=== PATIENT | male | born 1935 | race Caucasian/White ===

== ENCOUNTER 2018-08-02 11:10 | Observation (INO) | payer MEDICARE ==
[~2018-08-02] VITALS: Ht 162.6 cm; Wt 71.7 kg
[2018-08-02] MEDS ORDERED: ASPIRIN 81 MG CHEW TAB PO STA (11:41)
[2018-08-02] MEDS ORDERED: PANTOPRAZOLE 40 MG 10ML VIAL IV STA (11:41)
[2018-08-02] MEDS ORDERED: SODIUM CHLORIDE 0.9% 500ML 500 ML IV ONE (11:45)
[2018-08-02] MEDS ORDERED: METOPROLOL TARTRATE 25 MG TAB PO SCH ×4 (11:45→22:00)
[2018-08-02 11:50] LABS: BASOPHILS # (AUTO) 0.1 (0.0-0.1); BASOPHILS % 0.5 % (0.0-1.0); EOSINOPHILS # (AUTO) 0.3 (0.0-0.4); EOSINOPHILS % 2.7 % (0.0-6.0); HEMATOCRIT 41.3 % (38.2-49.6); HEMOGLOBIN 14.3 g/dL (14.0-18.0); LYMPHOCYTES # (AUTO) 2.8 (1.0-3.2); LYMPHOCYTES % 28.5 % (18.0-39.1); MEAN CORPUSCULAR HEMOGLOBIN 31.9 pg (28-32); MEAN CORPUSCULAR HGB CONC 34.6 g/dL (31-35); MEAN CORPUSCULAR VOLUME 92.2 fL (81-99); MONOCYTES # (AUTO) 0.8 (0.2-0.8); MONOCYTES % 8.2 % (4.4-11.3); NEUTROPHILS # (AUTO) 5.9 (2.1-6.9); NEUTROPHILS % 59.5 % (38.7-80.0); PLATELET COUNT 199 x10e3/uL (140-360); RED BLOOD COUNT 4.48 x10e6/uL (4.3-5.7); RED CELL DISTRIBUTION WIDTH 12.6 % (11.7-14.4)
[2018-08-02 11:57] LABS: INR 0.99; PARTIAL THROMBOPLASTIN TIME 31.5 seconds (23.8-35.5)
[2018-08-02 12:04] LABS: ALANINE AMINOTRANSFERASE 29 IU/L (0-55); ALBUMIN 4.1 g/dL (3.5-5.0); ALBUMIN/GLOBULIN RATIO 1.4 (0.8-2.0); ALKALINE PHOSPHATASE 57 IU/L (40-150); ANION GAP 12.4 mmol/L (8-16); BLOOD UREA NITROGEN 18 mg/dL (7-26); BUN/CREATININE RATIO 18 (6-25); CALCIUM 9.6 mg/dL (8.4-10.2); CARBON DIOXIDE 26 mmol/L (22-29); CHLORIDE 103 mmol/L (98-107); CREATINE KINASE 67 IU/L (30-200); CREATININE, SERUM 0.99 mg/dL (0.72-1.25); EST GLOMERULAR FILTRATION RATE > 60 ML/MIN (60-); GLUCOSE 140 mg/dL (74-118); MAGNESIUM 2.3 MG/DL (1.3-2.1); POTASSIUM 4.4 mmol/L (3.5-5.1); SODIUM 137 mmol/L (136-145)
[2018-08-02 12:24] LABS: THYROID STIMULATING HORMONE 0.941 uIU/mL (0.350-4.940)
[2018-08-02 13:43] LABS: CLARITY,URINE CLEAR (CLEAR); COLOR,URINE YELLOW (YELLOW)
[2018-08-02 13:44] LABS: BILIRUBIN,URINE NEGATIVE (NEGATIVE); KETONES,URINE NEGATIVE (NEGATIVE); LEUKOCYTE ESTERASE ,URINE NEGATIVE (NEGATIVE); NITRITE,URINE NEGATIVE (NEGATIVE); PROTEIN,URINE DIPSTICK NEGATIVE (NEGATIVE); URINE UROBILINOGEN 0.2 mg/dL (0.2 - 1)
[2018-08-02] MEDS ORDERED: MORPHINE SULFATE 2 MG/ML SYR IV PRN (14:15)
[2018-08-02] MEDS ORDERED: ONDANSETRON HCL INJ 2 MG/ML VIAL IV PRN (14:15)
[2018-08-02] MEDS ORDERED: ENOXAPARIN SODIUM INJ 100 MG/ML SYR SC SCH (14:15)
[2018-08-02] MEDS ORDERED: METOPROLOL TARTRATE INJ 1 MG/ML VIAL IV PRN (15:45)
[2018-08-02] MEDS ORDERED: TEMAZEPAM 15 MG CAP PO PRN (15:45)
--- NOTE | 2018-08-02 16:11 | Diagnostic Imaging Report ---
PROCEDURE: CHEST SINGLE (PORTABLE) COMPARISON: None. INDICATIONS: AFIB FINDINGS: LUNGS: No consolidations or edema. PLEURA: No effusions or pneumothorax. HEART & MEDIASTINUM: The heart is within normal size-limits. There is calcification within the aorta. Focal eventration of the right hemidiaphragm. BONES & SOFT TISSUES: No acute findings. CONCLUSION: No acute thoracic abnormality. Ross Galdamez D.O. Dictated by: Ross Galdamez D.O. on 08/02/2018 at 16:20 Electronically approved by: Ross Galdamez D.O. on 08/02/2018 at 16:20
--- NOTE | 2018-08-02 20:16 | Consultation ---
DATE OF CONSULTATION: August 02, 2018 REASON FOR CONSULTATION: Atrial fibrillation. HISTORY: This is an 83-year-old gentleman who is very healthy. He is known with longstanding history of hypertension and hypercholesterolemia. He is very physically active. In fact, he spent all of his day moving and doing other things. He went today for his checkup at [facility], and he was in atrial fibrillation with rapid ventricular response, and sent to this institution. Cardiac consultation is obtained. I visited the patient who denied having any angina or congestive heart failure like symptoms. He said probably he feels some palpitations, but no real fast heart rate. There is no angina, no orthopnea, no paroxysmal nocturnal dyspnea. No syncope or presyncope. REVIEW OF SYSTEMS: CARDIAC: As per above. PULMONARY: No cough. No hemoptysis. GI: No hematemesis. No melena. : No hematuria. No dysuria. NEUROMUSCULAR: No aches. No pain. GENERAL: No fever and no chills. HEMATOLOGICAL: No easy bruising or bleeding. PAST MEDICAL HISTORY: 1. Hypertension. 2. Hyperlipidemia. 3. Cataract surgery. 4. Glaucoma. HOME MEDICATIONS: Lisinopril 20 mg a day. Amlodipine 10 mg a day. Zocor 40 mg a day and eye drops. ALLERGIES: NONE. SOCIAL HISTORY: He is . He is a salesman. He is a nonsmoker and not an alcohol drinker. FAMILY HISTORY: Father of depression at age 81 and failure to thrive. Mother of myocardial infarction at age 69. She was diabetic. Six brothers. He lost a brother to an accident and another brother had pacemaker. No sisters. Three sons. He lost a son to an accident and another son who had hypertensive CVA at young age. One healthy daughter. PHYSICAL EXAMINATION VITALS: Height of 5 feet, 4 inches, weight of 158 pounds. Blood pressure 130/90. Heart rate of 110 per minute. Irregular, irregular rate of atrial fibrillation. Respiratory rate of 18. HEENT: Pupils are equal and reactive. NECK: No elevation of jugular venous pulsation. CHEST: Clear to auscultation and percussion. HEART: PMI in the 5th left intercostal space. Normal 1st and 2nd heart sounds. ABDOMEN: Soft with good bowel sounds. No organomegaly. No abdominal bruits. EXTREMITIES: No cyanosis. No clubbing. No edema. NEUROLOGIC: Awake, alert and oriented. No motor or sensory deficits. LABORATORY DATA: Sodium of 137. Potassium of 4.4. BUN of 18 and creatinine at 0.99. Glucose of 141. White blood cell count of 9.95. Hemoglobin 14.3, hematocrit 41%. Platelet count of 199,000. IMPRESSION AND PLAN: 1. Atrial fibrillation, questionable duration with fast ventricular response. 2. Hypertension. 3. Hyperlipidemia. Cardiac-maldonado we had a lengthy discussion and explained the goal statement, rate control and voodoo of rhythm and prevention of CVA. His CHADS score is 2. Recommendation is anticoagulation. We discussed warfarin and new anticoagulation agent and he wants Eliquis. A friend of his is using that and he is very happy with it. Would put him on that. Will put him on beta raisa. Will continue his lisinopril. Will check the echocardiogram, which was done by Dr. Parrish to assess good ejection fraction and valvular structure. Serial cardiac enzymes are ordered. Will follow that. We had a lengthy discussion explaining atrial fibrillation, etc., etc. Job#: [id number]
[2018-08-02] MEDS ORDERED: SIMVASTATIN 40 MG TAB PO SCH (21:00)
[2018-08-03 05:31] LABS: CHOL/HDL RATIO 4.3 (3.9-4.7); CREATINE KINASE 55 IU/L (30-200)
[2018-08-03] MEDS ORDERED: LISINOPRIL 20 MG TAB PO SCH (09:00)
[2018-08-03] MEDS ORDERED: METOPROLOL TARTRATE 25 MG TAB PO SCH (09:00)
[2018-08-03] MEDS ORDERED: FAMOTIDINE 20 MG/2 ML VIAL IV SCH (09:00)
[2018-08-03] MEDS ORDERED: APIXABAN 5 MG TABLET PO SCH (09:00)
[2018-08-03 10:45] VITALS: BP 137/85
--- NOTE | 2018-08-03 18:35 | Discharge Summary ---
PRIMARY CARE DOCTOR: Dr. Helen Dalal with [facility]. FINAL DIAGNOSIS: New-onset paroxysmal atrial fibrillation with rapid ventricular response. SECONDARY DIAGNOSES 1. Hypertension. 2. Dyslipidemia. PROCEDURES/STUDIES PERFORMED: None. CONSULTANTS: Dr. Weaver, cardiology. HISTORY: Per [facility] HOSPITAL COURSE: The patient was admitted. He was rate controlled with metoprolol. Subsequently, the patient converted back to sinus. The patient was evaluated by cardiology, who recommended Eliquis after a long discussion with the patient. I told the patient to stop his Norvasc, and instead he will take metoprolol. The patient was also given a prescription for Eliquis. The patient was seen and examined today. He will follow up with his PCP in 1 week. CONDITION ON DISCHARGE: Stable. DISCHARGE MEDICATIONS: Please see medication reconciliation form. JESUS ALBERTO DAVIS M.D. Job#: [id number] [place] cc:HELEN DALAL MD
--- OUTSIDE RECORDS SUMMARY | 2018-08-09 13:20 | XMS REPORT ---
Author Author [facility] Address Unknown Phone Unavailable Care Team Providers Care Coding Support Specialist Name Role Phone Rush DAVIS Unavailable Unavailable Problems This patient has no known problems. Allergies, Adverse Reactions, Alerts This patient has no known allergies or adverse reactions. Medications This patient has no known medications. Results Test Description Test Time Test Comments Text Results Atomic Results Result Comments CHEST SINGLE (PORTABLE) 2018-08-02 16:20:00 [place] [id number] Patient Name: KYLE GALVEZ MR #: [id number] : 1935 Age/Sex: 83/M Req #: [id number] [facility] Physician: JESUS ALBERTO DAVIS MD Ordered by: BRANDON ALMAZAN MD Report #: [id number] Location: [facility] Room/Bed: [place] [address] Procedure: [id number] DX/CHEST SINGLE (PORTABLE) Exam Date: 08/02/18 Exam Time: 1207 REPORT STATUS: Signed PROCEDURE: CHEST SINGLE (PORTABLE) COMPARISON: None. INDICATIONS: AFIB FINDINGS: LUNGS: No consolidations or edema. PLEURA: No effusions or pneumothorax. HEART MEDIASTINUM: The heart is within normal size-limits. There is calcification within the aorta. Focal eventration of the right hemidiaphragm. BONES SOFT TISSUES: No acute findings. CONCLUSION: No acute thoracic abnormality. Tim Galdamez D.O. Dictated by: Tim Galdamez D.O. on 08/02/2018 at 16:20 Electronically approved by: Tim Galdamez D.O. on 08/02/2018 at 16:20 Dictated By: TIM GALDAMEZ DO 1620 Transcribed By: TANIKA on 08/02/18 1620 COPY TO: BRANDON ALMAZAN MD
== END 2018-08-03 11:15 | disposition home or self-care (01) ==
LOC: ER 11:10 → UNDOADMIN 14:07 → ERHOLD 14:07
PROVIDERS: ADMIT Internal Medicine; ATTEND Internal Medicine
DX: I48.0 Paroxysmal atrial fibrillation (principal); I48.92 Unspecified atrial flutter; I10 Essential (primary) hypertension; E11.9 Type 2 diabetes mellitus without complications; E78.00 Pure hypercholesterolemia, unspecified; Z83.3 Family history of diabetes mellitus; Z82.49 Family history of ischemic heart disease and other diseases of the circulatory system; E78.5 Hyperlipidemia, unspecified
CPT/HCPCS: 36415 ×2; 71045; 80053; 80061; 81001; 82550 ×2; 82553 ×2; 83735; 83880; 84443; 84484 ×2; 85025; 85610; 85730; 93005 ×2; 99284; J1650; J7040; G0378

== ENCOUNTER 2019-07-13 04:55 | Emergency (ER) | payer MEDICARE ==
[~2019-07-13] VITALS: Ht 162.6 cm; Wt 71.7 kg
[2019-07-13] MEDS ORDERED: SODIUM CHLORIDE 0.9% 500ML 500 ML IV ONE (05:15)
[2019-07-13 05:18] LABS: BASOPHILS % 0.3 % (0.0-1.0); EOSINOPHILS # (AUTO) 0.3 (0.0-0.4); EOSINOPHILS % 2.5 % (0.0-6.0); HEMATOCRIT 38.7 % (38.2-49.6); HEMOGLOBIN 13.1 g/dL (14.0-18.0); LYMPHOCYTES # (AUTO) 2.6 (1.0-3.2); LYMPHOCYTES % 21.7 % (18.0-39.1); MEAN CORPUSCULAR HEMOGLOBIN 31.9 pg (28-32); MEAN CORPUSCULAR HGB CONC 33.9 g/dL (31-35); MEAN CORPUSCULAR VOLUME 94.2 fL (81-99); NEUTROPHILS # (AUTO) 7.9 (2.1-6.9); NEUTROPHILS % 67.1 % (38.7-80.0); PLATELET COUNT 189 x10e3/uL (140-360); RED BLOOD COUNT 4.11 x10e6/uL (4.3-5.7); RED CELL DISTRIBUTION WIDTH 12.7 % (11.7-14.4)
[2019-07-13 05:24] LABS: INR 1.3; PROTHROMBIN TIME 16.8 seconds (11.9-14.5)
[2019-07-13 05:25] LABS: PARTIAL THROMBOPLASTIN TIME 46.8 seconds (23.8-35.5)
[2019-07-13 05:32] LABS: ALANINE AMINOTRANSFERASE 26 IU/L (0-55); ALBUMIN 3.8 g/dL (3.5-5.0); ALBUMIN/GLOBULIN RATIO 1.1 (0.8-2.0); ALKALINE PHOSPHATASE 86 IU/L (40-150); ANION GAP 14.3 mmol/L (8-16); BLOOD UREA NITROGEN 18 mg/dL (7-26); BUN/CREATININE RATIO 17 (6-25); CALCIUM 9.7 mg/dL (8.4-10.2); CARBON DIOXIDE 21 mmol/L (22-29); CHLORIDE 102 mmol/L (98-107); CREATINE KINASE 83 IU/L (30-200); CREATININE, SERUM 1.09 mg/dL (0.72-1.25); EST GLOMERULAR FILTRATION RATE > 60 ML/MIN (60-); GLUCOSE 134 mg/dL (74-118); MAGNESIUM 1.9 MG/DL (1.3-2.1); POTASSIUM 4.3 mmol/L (3.5-5.1); SODIUM 133 mmol/L (136-145)
--- NOTE | 2019-07-13 06:31 | Diagnostic Imaging Report ---
EXAMINATION: CHEST SINGLE (PORTABLE) INDICATION: Chest pain palpitations. COMPARISON: August 02, 2018. FINDINGS: TUBES and LINES: None. LUNGS: There are bibasilar atelectasis. There is no evidence of pneumonia or pulmonary edema. PLEURA: No pleural effusion or pneumothorax. HEART AND MEDIASTINUM: Cardiac size is mildly enlarged. There are atherosclerotic calcifications within the aorta. BONES AND SOFT TISSUES: There are degenerative changes in the thoracic spine. Soft tissues are unremarkable. UPPER ABDOMEN: No free air under the diaphragm. IMPRESSION: Bibasilar atelectasis. Signed by: Dr. Gaviota Perez M.D. on 07/13/2019 6:27 AM
[2019-07-13 06:37] VITALS: BP 127/79
== END 2019-07-13 06:43 | disposition home or self-care (01) ==
LOC: ER 04:55
DX: R00.2 Palpitations (principal); I48.0 Paroxysmal atrial fibrillation; Z79.01 Long term (current) use of anticoagulants; E78.5 Hyperlipidemia, unspecified; I10 Essential (primary) hypertension
CPT/HCPCS: 36415; 71045; 80053; 82550; 82553; 83735; 84484; 85025; 85610; 85730; 93005; 99284; J7040

== ENCOUNTER 2020-01-10 20:01 | Emergency (ER) | payer MEDICARE, OTHER ==
[~2020-01-10] VITALS: Ht 162.6 cm; Wt 71.7 kg
== END 2020-01-10 20:45 | disposition left against medical advice (07) ==
LOC: ER 20:01
DX: R69 Illness, unspecified (principal)